=== PATIENT | female | born 1975 | race Caucasian/White ===

== ENCOUNTER 2019-10-11 08:06 | Outpatient (CLI) | payer BC, OTHER | END 2019-10-11 08:07 | disposition home or self-care (01) | LOC: LABBT 08:06 | PROVIDERS: ATTEND Student in an Organized Health Care Education/Training Program | DX: Z01.812 Encounter for preprocedural laboratory examination (principal); Z11.59 Encounter for screening for other viral diseases; N92.6 Irregular menstruation, unspecified | CPT/HCPCS: 84703; 85027; 86850; 86900; 86901; 87635; U0003 ==